=== PATIENT | female | born 1965 | race Caucasian/White ===

== ENCOUNTER 2016-08-15 12:24 | Observation (INO) | payer OTHER ==
[~2016-08-15] VITALS: Ht 165.1 cm; Wt 98.3 kg
[~2016-08-15 12:24] MED LIST: AMT25T PO; OXYC5SOL11 PO; TOPI200T7 PO; TOPI50TA88 PO
[2016-08-15 12:35] VITALS: BP 166/94; PULSE 70; RESP 18; O2SAT 99
--- NOTE | 2016-08-15 12:47 | ED.REPORT ---
HPI-General Illness Date of Service Aug 15, 2016 ED Provider: Viky Islas MD Pt is a 50 y.o. female with a hx of fibromyalgia, depression, and migraines who presents to the ED via EMS accompanied by her with an altered level of consciousness onset 1130. The states that the pt got up this morning around 0630 then fell back asleep. He heard her moaning around 1130 and went to check on her. When she wasn't completely responsive he decided to call EMS. Per pt has had 2 episodes of "extreme fatigue" over the past several weeks where she is only able to move from her bed to a chair before she falls back to sleep. denies any recent stressors in the pt's life. Upon examination pt expresses left lower extremity pain by loudly moaning when it is palpated. Pt is a poor historian. Nursing Notes Stated Complaint: UNRESPONSIVE Chief Complaint: General Complaint Nursing Notes Reviewed: Yes Allergies: Coded Allergies: Shellfish (Verified Allergy, Intermediate, breathing difficulties,n/v diarrhea, 08/30/15) Soy (Verified Allergy, Intermediate, breathing diffculties,n/v and diarrhea, 08/30/15) gluten (Verified Allergy, Intermediate, resp difficulties,n/v,diarrhea, ) Sulfa (Sulfonamide Antibiotics) (Verified Allergy, Unknown, UNKNOWN, ) codeine (Verified Allergy, Unknown, UNKNOWN, 08/30/15) Uncoded Allergies: DAIRY (Allergy, Intermediate, breathing difficulties n/v diarrhea, 06/28/14) EGGS (Allergy, Intermediate, breathing difficulties,n/v and diarrhea, ) FISH (Allergy, Intermediate, breathing difficulties,n/v diarrhea, 06/28/14) PEANUTS (Allergy, Intermediate, breathing difficulties,n/v,diarrhea, ) TREE NUTS (Allergy, Intermediate, breathing difficulties,n/v diarrhea, 06/28) ANESTHESIA/PAIN MEDS.. (Allergy, Unknown, UNKNOWN, 06/27/14) Scheduled Escitalopram Oxalate (Escitalopram Oxalate) 20 Mg Tablet 20 MG PO HS Magnesium Glycinate (Mag Glycinate) 100 Mg Tablet 100 MG PO BID Magnesium Glycinate (Mag Glycinate) 100 Mg Tablet 200 MG PO HS General Time Seen by MD: 12:45 Chief Complaint Other (Altered LOC) Hx Obtained From: Patient Unable to Obtain Hx: Patient condition Arrived By: Ambulance Sudden in Onset?: Yes Onset Occurred: 1 - 4 hours ago Symptom Duration: Since onset Location: : Foot left: Leg left Quality: Painful Severity: Current: Moderate Past Medical History Past Medical History Notes: Last brain imaging was an MRI completed in 2008 Past Medical History Pneumonia GERD Kidney stones Fibromyalgia eosinophilic esophagitis DENIS Chronic back pain hx of Hep A and B Reports: Asthma Reports: Depression, Migraines Past Surgical History hysterectomy 04/2015 oophorectomy 06/2015 Knee repair Reports: Cholecystectomy Smoking History Never Smoker Social History Drug Use: THC Ambulatory Status Independent Review of Systems Unable to Obtain ROS Patient condition Full Review of Systems Musculoskeletal: Reports: Extremity pain (Left lower extremity pain) Neurologic: Reports: Change LOC Complete sys rev & neg: except as marked. Physical Exam Vital Signs Vital Signs Date Time Temp Pulse Resp B/P Pulse Ox O2 Delivery O2 Flow Rate FiO2 08/15/16 12:35 37 70 18 166/94 99 Room Air Initial VS: Reviewed Neck: Supple Extremities: Vascular intact, Neuro intact General/Constitutional: Well appearing, Well developed, Well hydrated, Well nourished, Not toxic appearing Appearance / Presentation: Positive: Pale Comfortable appearing Head / Eyes: Atraumatic, Normocephalic Pupils: Positive: Dilated L, Dilated R Widely dilated pupils that are very reactive Respiratory / Chest: Atraumatic, Breath sounds NL, Breath sounds = bilat, No respiratory distress, No wheezing Pt is protecting their airway Cardiovascular: Heart rate NL, Regular rhythm, Heart sounds NL, No murmurs, Peripheral circulation NL Abdomen: Atraumatic, Soft, Non-tender, BS normoactive, No distention Lower Extremity / Pelvis / MS: Atraumatic, Neurologic intact, Vascular intact Left calf spasm present Ankle / Foot: Atraumatic, Neurologic intact, Vascular intact Internal rotation of left foot with spasm. Skin: Atraumatic, Color NL, No rash, Warm, Dry, Intact, No swelling Mental Status: Positive: Responds to painful stim Responds with monosyllabic noises Can wiggle toes minimally when asked. Not as responsive when asked to squeeze her hands. Interpretation & Diagnostics Lab Results Interpretation Result Diagram: 08/15/16 1318 08/15/16 1318 Test 08/15/16 13:00 4/1/17 13:18 Urine Color Yellow (YELLOW) Urine Appearance Clear (CLEAR,HAZY) Urine pH 7.0 (5.0-8.0) Urine Specific [place] 1.010 (1.003-1.035) Urine Protein Negativemg/dL (NEG,TRACE) Urine Glucose (UA) Negativemg/dL (NEGATIVE) Urine Ketones Negativemg/dL (NEGATIVE) Urine Occult Blood Negative (NEGATIVE) Urine Nitrite Negative (NEGATIVE) Urine Bilirubin Negative (NEGATIVE) Urine Urobilinogen Normalmg/dL (NORMAL) Urine Leukocyte Esterase Negative (NEGATIVE) Urine RBC 0-2/hpf (0-2) Urine WBC 0-5/hpf (0-5) Urine Epithelial Cells Moderate/hpf (NONE-MOD) Urine Crystals Amorphous urates (NONE Urine Bacteria None/hpf (NONE-FEW) Urine Hyaline Casts None/lpf (NONE) Urine Granular Casts None seen (NONE SEEN) Urine Waxy Casts None seen (NONE SEEN) Urine Red Blood Cell Casts None seen (NONE SEEN) Urine White Blood Cell Casts None seen (NONE SEEN) Urine Mucus None seen (None Seen) Urine Trichomonas None seen (NONE SEEN) Urine Yeast None (NONE SEEN) Urinalysis Comment None Urine Culture Reflexed Not indicated Urine Opiates Screen Negative Urine Methadone Screen Negative Urine Barbiturates Screen Negative Urine Amphetamines Screen Negative Urine Benzodiazepines Screen Negative Urine Cocaine Metabolite Screen Negative Urine Cannabinoids Screen Negative White Blood Count 7.3th/mm3 (3.8-10.1) Red Blood Count 4.88mil/mm3 (3.90-5.20) Hemoglobin 14.9g/dL (12.0-15.6) Hematocrit 45.4% (35.0-46.0) Mean Corpuscular Volume 93.0fL (81-100) Mean Corpuscular Hemoglobin 30.5pg (27.0-35.0) Mean Corpuscular Hemoglobin Concent 32.8% (32.0-37.0) Red Cell Distribution Width 12.8% (12.3-15.4) Platelet Count 299bil/L (150-400) Neutrophils (%) (Auto) 55.6% (40-74) Lymphocytes (%) (Auto) 26.6% (14-46) Monocytes (%) (Auto) 6.5% (4-12) Eosinophils (%) (Auto) 10.6% (0-5) Basophils (%) (Auto) 0.6% (0-3) Sodium Level 138mEq/L (134-144) Potassium Level 4.4mEq/L (3.5-5.2) Chloride Level 100mEq/L (97-108) Carbon Dioxide Level 23mmol/L (18-29) Blood Urea Nitrogen 13mg/dL (6-24) Creatinine 0.73mg/dL (0.57-1.00) Estimat Glomerular Filtration Rate 120mL/min (>59) Glucose Level 102mg/dL (60-99) Lactic Acid Level 1.6mmol/L (0.4-2.0) Calcium Level 9.5mg/dL (8.5-10.1) Magnesium Level 2.1mg/dL (1.6-2.6) Total Bilirubin 0.3mg/dL (0.0-1.2) Aspartate Amino Transf (AST/SGOT) 20U/L (0-50) Alanine Aminotransferase (ALT/SGPT) 18U/L (0-32) Alkaline Phosphatase 90U/L (25-150) Troponin T < 0.010ug/L (0.0-0.011) Total Protein 7.5g/dL (6.4-8.4) Albumin 4.3g/dL (3.4-5.0) Procalcitonin 0.03ng/mL (0.00-0.08) CT Head Interpretation IMPRESSION: No acute intracranial abnormalities. Dictated by: Jeramy Hicks M.D. on 08/15/2016 at 13:37 Approved by: Jeramy Hicks M.D. on 08/15/2016 at 13:38 Re-Eval/Medical Decision Med Decision/Clinical Course 50-year-old woman with increasing stressors recently. Presents with a constellation of symptoms that are puzzling at best. She simply will not participate. She will open her eyes she will move she will turn over. She is moving all extremities she can open her eyes she is grunting yes or no answers to questions. There is no evidence that she is seizing has seized or is post ictal at this point there is no medical evidence of acute infection CT scan of the brain shows no lesions or other concerns. Most likely diagnosis at this point is an acute conversion disorder. Like to admit her to the hospitalist service with acute psychiatric consultation. She is not a good fit for the care center as she is completely non-ambulatory at this point she does grunt her consent when discussing the possibility of conversion disorder and being cared for by a psychiatrist. Source of Hx: Old records Time of Eval: 14:47 Re-Evaluation/Progress Note: Pt rechecked. Discussed imaging and lab results. Discussed possibility of conversion disorder and need for admit for further medical and psychiatric work-up. Pt and understand and agree with plan. Pt moans agreement. Consultation #1: Referral / Consult Name: Maxim Wade Consulted With: Hospitalist Call Returned at: 15:11 Change Coordinator: Will see patient Note: Discussed pt condition and need for psychiatric consult. He states he will examine the pt. He has reservations without a neurology consult. Consultation #2: Consulted With: Psychiatry Call Returned at: 15:40 Change Coordinator: Will see patient Note: Dr Santa is speaking with Dr Preciado about options for admission. Current plan is still hospital floor admission (needs to be ambulatory for [facility]) with in patient consultation. Most likelydiagnosis remains acute conversion disorder. Counseled Regarding: Diagnosis, Lab results Discharge & Departure Primary Impression: Conversion disorder, acute episode, with weakness or paralysis Additional Impression: Altered mental status Disposition: ADMITTED TO HOSPITAL Discharge Condition All VS Reviewed: Yes Condition: No Change Referrals: Mai Friedman MD (PCP) Adam Attestation Portions of this note were transcribed by Estelle Desai. I, Dr. Islas personally performed the history, physical exam and medical decision-making; I reviewed and confirmed the accuracy of the information in the transcribed note. Signed by: Adam Avitia, 08/15/16 and 1518 copies to: Mai Friedman MD, Shawna L MD Aug 15, 2016 12:47 ESTELLE DESAI Aug 15, 2016 12:55
[2016-08-15] MEDS ORDERED: 0.9% Sodium Chloride 1,000 ML IV ONE (13:09)
[2016-08-15 13:31] LABS: BASOPHILS % (AUTO) 0.6 % (0-3); EOSINOPHILS % (AUTO) 10.6 % (0-5); MONOCYTES % (AUTO) 6.5 % (4-12); Mean Corpuscular Hemoglobin 30.5 pg (27.0-35.0); NEUTROPHILS % (AUTO) 55.6 % (40-74); Platelet Count 299 bil/L (150-400)
[2016-08-15 13:35] LABS: APPEARANCE,URINE CLEAR (CLEAR,HAZY); COLOR,URINE YELLOW (YELLOW); OCCULT BLOOD,URINE NEGATIVE (NEGATIVE); UROBILINOGEN,URINE NORMAL (NORMAL)
--- NOTE | 2016-08-15 13:39 | DRSVH ---
PROCEDURE: CT BRAIN WITHOUT CONTRAST ([id number]) INDICATIONS: 50-year-old female with altered mental status. TECHNIQUE: Noncontrast 4.5 mm thick angled axial sections acquired from the foramen magnum to the vertex, with c oronal reformats. COMPARISON: None. FINDINGS: Image quality: Excellent. CSF spaces: Basal cisterns are patent. No extra-axial fluid collections. Ventricles are normal in size and shape. Brain: No midline shift. No intracranial masses or hemorrhage. Rivera-white matter interface is norm al. Skull and face: Calvarium and visualized facial bones are intact, without suspicious lesions. Sinuses: Visualized sinuses and mastoids are clear. IMPRESSION: No acute intracranial abnormalities. Dictated by: Jeramy Hicks M.D. on 08/15/2016 at 13:37 Approved by: Jeramy Hicks M.D. on 08/15/2016 at 13:38
[2016-08-15 13:56] LABS: Magnesium 2.1 mg/dL (1.6-2.6)
[2016-08-15 14:07] LABS: TROPONIN T < 0.010 ug/L (0.0-0.011)
[2016-08-15 15:41] VITALS: BP 158/92; PULSE 72; RESP 18; O2SAT 99
[2016-08-15] MEDS ORDERED: Ondansetron 2 mg/mL 2 mL Inj IVPUSH PRN (16:15)
[2016-08-15] MEDS ORDERED: Alum-Mag Hydrox-Simeth 30 mL Suspension PO PRN (16:15)
[2016-08-15] MEDS ORDERED: Polyethylene Glycol (PEG) 17 Gm Powder PO PRN (16:15)
[2016-08-15 16:17] VITALS: BP 145/93; PULSE 68; RESP 18; O2SAT 98
[2016-08-15] MEDS ORDERED: ESCI20TA38 PO (16:25)
[2016-08-15] MEDS ORDERED: MAGN100T PO ×2 (16:25)
[2016-08-15 16:26] VITALS: PULSE 75
[2016-08-15 17:08] VITALS: PULSE 75
--- NOTE | 2016-08-15 17:13 | PCM.HPMED ---
Subjective Date of Service Aug 15, 2016 Primary Provider: Admitting Physician: Maxim Wade Primary Care Physician: Mai Friedman MD Attending Physician: Maxim Wade Chief Complaint: unresponsive History of Present Illness: 50 year-old female with a history of fibromyalgia, depression, and migraines presents to the ED via EMS accompanied by her with report of unresponsiveness and altered level of consciousness. The patient is nonverbal and thus the entire history is obtained from her . The repots that over the past 2 weeks patient has had two episodes (each lasting about 3 days) where she has been very tired and complaining of "low energy". She otherwise has not been having any change in appetite and in fact has been eating and drinking "fine" according to her . No vomiting, fever, chills , dysuria, diarrhea, numbness, or tingling were noted or reported by her. Last week she did have an episode of migraine headache associated with some blurry vision which prompted a visit to the airplane electrician which reportedly did not find any abnormal finding and her symptoms resolved within 24 hours. Today patient reportedly walk up around 0630 and then fell back asleep. He heard her moaning around 1130 and when she wasn't completely responsive he decided to call EMS. denies any recent stressors in the pt's life but does not that "she has been through a lot" in recent years including her fibromyalgia, migraines and more recent hysterectomy and ? salpingo-oophorectomy in April 2016 due to endometriosis. Interestingly even though patient is non-verbal and minimally responsive she does moan "yes" and "no" in the middle of my discussion with her . For example, when I asked her if she was having any nausea or vomiting the initially said "no" but the patient started moaning and her appologized to the patient and said "sorry dear you're right" and then turned to me and said "she is trying to correct me, she did have some nausea" earlier. I also asked the patient if she could talk and she moaned "no". I asked her if she knew where she was and she moaned "uhumm" but when asked if she could tell me where she is she didn't say anything! When asked if she has any pain she moans "no". Allergies Coded Allergies: Shellfish (Verified Allergy, Intermediate, breathing difficulties,n/v diarrhea, 08/30/15) Soy (Verified Allergy, Intermediate, breathing diffculties,n/v and diarrhea, 08/30/15) gluten (Verified Allergy, Intermediate, resp difficulties,n/v,diarrhea, ) Sulfa (Sulfonamide Antibiotics) (Verified Allergy, Unknown, UNKNOWN, ) codeine (Verified Allergy, Unknown, UNKNOWN, 08/30/15) Uncoded Allergies: DAIRY (Allergy, Intermediate, breathing difficulties n/v diarrhea, 06/28/14) EGGS (Allergy, Intermediate, breathing difficulties,n/v and diarrhea, ) FISH (Allergy, Intermediate, breathing difficulties,n/v diarrhea, 06/28/14) PEANUTS (Allergy, Intermediate, breathing difficulties,n/v,diarrhea, ) TREE NUTS (Allergy, Intermediate, breathing difficulties,n/v diarrhea, 06/28) ANESTHESIA/PAIN MEDS.. (Allergy, Unknown, UNKNOWN, 06/27/14) Home Medications Escitalopram Oxalate 20 Mg Tablet 20 Mg PO HS 30 Days Ref 0 Electrolytic, Caloric, And Bettye Magnesium Glycinate 100 Mg Tablet (Mag Glycinate) 100 Mg PO BID Magnesium Glycinate 100 Mg Tablet (Mag Glycinate) 200 Mg PO HS Exam Vital Signs & I/O Vital Sign- Last 8 Hours Date Time Temp Pulse Resp B/P Pulse Ox O2 Delivery O2 Flow Rate FiO2 08/15/16 16:26 75 08/15/16 16:17 37.2 68 18 145/93 98 Room Air 08/15/16 15:41 37 72 18 158/92 99 Room Air 08/15/16 12:35 37 70 18 166/94 99 Room Air Lab & Micro Results Laboratory Tests Test 08/15/16 13:00 08/15/16 13:18 Urine Color Yellow (YELLOW) Urine Appearance Clear (CLEAR,HAZY) Urine pH 7.0 (5.0-8.0) Urine Specific [place] 1.010 (1.003-1.035) Urine Protein Negativemg/dL (NEG,TRACE) Urine Glucose (UA) Negativemg/dL (NEGATIVE) Urine Ketones Negativemg/dL (NEGATIVE) Urine Occult Blood Negative (NEGATIVE) Urine Nitrite Negative (NEGATIVE) Urine Bilirubin Negative (NEGATIVE) Urine Urobilinogen Normalmg/dL (NORMAL) Urine Leukocyte Esterase Negative (NEGATIVE) Urine RBC 0-2/hpf (0-2) Urine WBC 0-5/hpf (0-5) Urine Epithelial Cells Moderate/hpf (NONE-MOD) Urine Crystals Amorphous urates (NONE Urine Bacteria None/hpf (NONE-FEW) Urine Hyaline Casts None/lpf (NONE) Urine Granular Casts None seen (NONE SEEN) Urine Waxy Casts None seen (NONE SEEN) Urine Red Blood Cell Casts None seen (NONE SEEN) Urine White Blood Cell Casts None seen (NONE SEEN) Urine Mucus None seen (None Seen) Urine Trichomonas None seen (NONE SEEN) Urine Yeast None (NONE SEEN) Urinalysis Comment None Urine Culture Reflexed Not indicated Urine Opiates Screen Negative Urine Methadone Screen Negative Urine Barbiturates Screen Negative Urine Amphetamines Screen Negative Urine Benzodiazepines Screen Negative Urine Cocaine Metabolite Screen Negative Urine Cannabinoids Screen Negative White Blood Count 7.3th/mm3 (3.8-10.1) Red Blood Count 4.88mil/mm3 (3.90-5.20) Hemoglobin 14.9g/dL (12.0-15.6) Hematocrit 45.4% (35.0-46.0) Mean Corpuscular Volume 93.0fL (81-100) Mean Corpuscular Hemoglobin 30.5pg (27.0-35.0) Mean Corpuscular Hemoglobin Concent 32.8% (32.0-37.0) Red Cell Distribution Width 12.8% (12.3-15.4) Platelet Count 299bil/L (150-400) Neutrophils (%) (Auto) 55.6% (40-74) Lymphocytes (%) (Auto) 26.6% (14-46) Monocytes (%) (Auto) 6.5% (4-12) Eosinophils (%) (Auto) 10.6% (0-5) Basophils (%) (Auto) 0.6% (0-3) Sodium Level 138mEq/L (134-144) Potassium Level 4.4mEq/L (3.5-5.2) Chloride Level 100mEq/L (97-108) Carbon Dioxide Level 23mmol/L (18-29) Blood Urea Nitrogen 13mg/dL (6-24) Creatinine 0.73mg/dL (0.57-1.00) Estimat Glomerular Filtration Rate 120mL/min (>59) Glucose Level 102mg/dL (60-99) Lactic Acid Level 1.6mmol/L (0.4-2.0) Calcium Level 9.5mg/dL (8.5-10.1) Magnesium Level 2.1mg/dL (1.6-2.6) Total Bilirubin 0.3mg/dL (0.0-1.2) Aspartate Amino Transf (AST/SGOT) 20U/L (0-50) Alanine Aminotransferase (ALT/SGPT) 18U/L (0-32) Alkaline Phosphatase 90U/L (25-150) Troponin T < 0.010ug/L (0.0-0.011) Total Protein 7.5g/dL (6.4-8.4) Albumin 4.3g/dL (3.4-5.0) Procalcitonin 0.03ng/mL (0.00-0.08) Result Diagram: 08/15/16 1318 08/15/16 1318 Review of Systems: Constitutional: Negative, except as otherwise mentioned in the history above. Ophthalmologic: Negative, except as otherwise mentioned in the history above. Cardiovascular: Negative, except as otherwise mentioned in the history above. Respiratory: Negative, except as otherwise mentioned in the history above. Gastrointestinal: Negative, except as otherwise mentioned in the history above. Genitourinary: Negative, except as otherwise mentioned in the history above. Musculoskeletal: Negative, except as otherwise mentioned in the history above. Neurological: Negative, except as otherwise mentioned in the history above. Psychiatric: Negative, except as otherwise mentioned in the history above. Hematologic/Lymphatic: Negative, except as otherwise mentioned in the history above. Allergic/Immunologic: Negative, except as otherwise mentioned in the history above. PMH 1. Fibromyalgia 2. migraines 3. DENIS (on CPAP) 4. occasional insomnia 5. Eosinophilic esophagitis Surgical History s/p hysterectomy and ? salpingo-oophorectomy in April 2016 Family History mother with breast cancer. father with ? psychiatric disorder Social History Hx Alcohol Use: Yes (rare) Hx Substance Use: No Hx Tobacco Use: No Smoking Status: Never Smoker Exam Vital Signs Vital Sign - Last Date Time Temp Pulse Resp B/P Pulse Ox O2 Delivery O2 Flow Rate FiO2 08/15/16 16:26 75 08/15/16 16:17 37.2 18 145/93 98 Room Air General: No Acute Distress Head: Normal Eyes: PERRLA, Scleral Anicteric Nose: Mucous Membr Moist/[place] Mouth: Mucous Membr Moist/[place] Neck: No Thyromegaly Chest & Lungs: Chest Wall Normal, Clear to auscultation & percussion Cardiovascular: Regular Rate/Rhythm Pulses: NL carotid, radial, femoral, DP, PT Abdomen: Non-tender, Non-distended, Normoactive bowel tones, Soft Extremities: No cyanosis/clubbing/edma bilat Neurological: Other (non-verbal except moaning to answer "yes/no" as noted in HPI. otherwise does not follow any command excpet when asked to open her eyes she seemed to attempt to open her eye but didn't.) Lymphatic: Other Lymph Nodes (no lymphadenopathy) Lab and Diagnostics Result Diagram: 08/15/16 1318 08/15/16 1318 X-Rays, CTs and MRIs Date of Service: 08/15/16 1309 PROCEDURE: CT BRAIN WITHOUT CONTRAST ([id number]) IMPRESSION: No acute intracranial abnormalities. Dictated by: Jeramy Hicks M.D. on 08/15/2016 at 13:37 Approved by: Jeramy Hicks M.D. on 08/15/2016 at 13:38 12-lead ECG not done Assessment & Plan 50 year-old female with a history of fibromyalgia, depression, and migraines presents to the ED via EMS accompanied by her with report of unresponsiveness and altered level of consciousness. # Acute unresponsiveness and change in mental status, preset on admission. 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 - check urine tox - f/u on tele - psychiatry consulted in ED. will f/u w/ further recs - check TSH to rule out hypothyroid as contributing factor - c/w supportive care # History fibromyalgia. presumed stable - c/w supportive care # Eosinophilia. unclear acuity or significance. present on admission. - ? if related to history of eosinophilic esophagitis. - f/u # DENIS, chronic. - pt to use her home CPAP setting # Reported history of insomnia. - pt's says she is intolerant of sleeping pills and would have "nightmares" with them and has not been taking any sleeping aids in recent months or year. She is being admitted as observation status with expected length of hospital stay less than 2 midnights. GI Prophylaxis: Proton Pump Inhibitor VTE Prophylaxis: Sub-Q Heparin (Unfractionated) Resuscitation Status: CPR: Attempt Resuscitation (discussed and verified with her ) Time spent 60 min Maxim Wade Aug 15, 2016 17:13
[2016-08-15] MEDS: Heparin 5,000 Unit/mL Inj SUBQ SCH (18:29)
[2016-08-15] MEDS ORDERED: Dextrose 5% 0.45% NaCl 1,000 ML IV ONE (18:55)
[2016-08-15] MEDS ORDERED: Acetaminophen IV 1,000 MG in IV Premix 1 EACH IV ONE (20:10)
[2016-08-15 20:40] VITALS: BP 153/93; PULSE 81; RESP 18; O2SAT 94
[2016-08-16] MEDS: Heparin 5,000 Unit/mL Inj SUBQ SCH ×2 (01:18→08:30)
[2016-08-16 01:25] VITALS: BP 167/106; PULSE 80; RESP 20; O2SAT 96
[2016-08-16 02:29] VITALS: BP 142/88; PULSE 72
[2016-08-16] MEDS ORDERED: Acetaminophen IV 1,000 MG in IV Premix 1 EACH IV ONE (02:40)
[2016-08-16 05:23] VITALS: PULSE 80
[2016-08-16 06:12] VITALS: BP 139/90; PULSE 67; RESP 18; O2SAT 96
[2016-08-16 08:37] VITALS: PULSE 97
--- NOTE | 2016-08-16 10:14 | PCM.DIMED ---
Discharge Instructions Date of Service Aug 16, 2016 Dates of Hospitalization Aug 15, 2016 at 15:19 Discharge Diagnosis Discharge Diagnosis # Acute unresponsiveness and change in mental status, preset on admission. 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 - will need close followup with primary care provider and for followup on the pending thyroid panel study. # History fibromyalgia. presumed stable # Mild eosinophilia. unclear acuity or significance. present on admission. - Followup with primary care provider to ensure resolution. # Obstructive sleep apnea, chronic. Diet No restrictions Activity No restrictions Call your provider Fever or Chills, Shortness of breath, Bleeding, Chest pain, Weakness (unilateral ) Patient Instructions Seek immediate medical attention if any new or worsening signs or symptoms occur. Follow-up plan 1. Followup with primary care provider in 2-5 days Follow-up Provider: Mai Friedman MD, Masoud Aug 16, 2016 10:14
[2016-08-16 14:01] VITALS: BP 160/92; PULSE 81; RESP 18; O2SAT 96
--- NOTE | 2016-08-16 14:40 | PCM.DC.MED ---
Discharge Summary Date of Service Aug 16, 2016 Dates of Hospitalization Date of Hospital Admission Aug 15, 2016 at 15:19 Date of Discharge: Aug 16, 2016 Providers: Admitting Physician: Maxim Wade Primary Care Physician: Mai Friedman MD Attending Physician: Maxim Wade Diagnosis at Time of Discharge Diagnosis at Time of Discharge # Acute unresponsiveness and change in mental status, preset on admission. 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 - will need close followup with primary care provider and for followup on the pending thyroid panel study. # History fibromyalgia. presumed stable # Mild eosinophilia. unclear acuity or significance. present on admission. - Followup with primary care provider to ensure resolution. # Obstructive sleep apnea, chronic. Procedures XRay, CTs & MRIs Date of Service: 08/15/16 1309 PROCEDURE: CT BRAIN WITHOUT CONTRAST ([id number]) IMPRESSION: No acute intracranial abnormalities. Dictated by: Jeramy Hicks M.D. on 08/15/2016 at 13:37 Approved by: Jeramy Hicks M.D. on 08/15/2016 at 13:38 Brief History As noted in my H&P from 08/15/16: 50 year-old female with a history of fibromyalgia, depression, and migraines presents to the ED via EMS accompanied by her with report of unresponsiveness and altered level of consciousness. The patient is nonverbal and thus the entire history is obtained from her . The repots that over the past 2 weeks patient has had two episodes (each lasting about 3 days) where she has been very tired and complaining of "low energy". She otherwise has not been having any change in appetite and in fact has been eating and drinking "fine" according to her . No vomiting, fever, chills , dysuria, diarrhea, numbness, or tingling were noted or reported by her. Last week she did have an episode of migraine headache associated with some blurry vision which prompted a visit to the audit director which reportedly did not find any abnormal finding and her symptoms resolved within 24 hours. Today patient reportedly walk up around 0630 and then fell back asleep. He heard her moaning around 1130 and when she wasn't completely responsive he decided to call EMS. denies any recent stressors in the pt's life but does not that "she has been through a lot" in recent years including her fibromyalgia, migraines and more recent hysterectomy and ? salpingo-oophorectomy in April 2016 due to endometriosis. Interestingly even though patient is non-verbal and minimally responsive she does moan "yes" and "no" in the middle of my discussion with her . For example, when I asked her if she was having any nausea or vomiting the initially said "no" but the patient started moaning and her appologized to the patient and said "sorry dear you're right" and then turned to me and said "she is trying to correct me, she did have some nausea" earlier. I also asked the patient if she could talk and she moaned "no". I asked her if she knew where she was and she moaned "uhumm" but when asked if she could tell me where she is she didn't say anything! When asked if she has any pain she moans "no". Hospital Course # Acute unresponsiveness and change in mental status, preset on admission. 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 - urine tox negative - Thyroid study results still pending - by morning of 08/16/16 patient's presenting symptoms seemed to have completely resolved. She was noted to be sitting at the edge of the bed (awake, alert and oriented). When asked if she remembered me from yesterday she answered "yes" and told me that even though she could hear me yesterday she was unable to move any of her extremities or open her eyes or mouth as was being instructed at the time. But this morning she had tolerated her breakfast and had been ambulating the lawrence without difficulty. Patient and her were eager for patient to be discharged and did not wish to wait for the final thyroid study result nor to be seen by psychiatrist during this hospitalization. Her discharge orders and instructions were done but I was notified by her nurse that when she went to give her the discharge papers patient was again laying in bed flat and not following any commands. Her at that time was requesting for patient to be transferred to [facility]. I revisited patient and her noted that he felt that we were not taking his 's medical condition seriously and he felt that I had already made up my mind about her diagnosis being psychological as opposed to medical. I tried to reassure him that I was trying to rule out medical causes of her symptoms but that psychological etiology such as conversion disorder was still high on the list of differential. Nevertheless, patient's insisted on patient being transferred. I placed a call to [facility]/Dejuan Staley and Dr. Pike has graciously agreed to accept the patient with possible consideration of further neurology consult over there (not available at our hospital at this time). Of note, when I went back in the room to update patient's of the transfer process patient started making a humming sound while laying flat in bed with her eyes and mouth closed. Patient's was noted to say: "what was that dear" to which the patient responded with the same humming sound and her responded by: "do you need to urinate?" and the patient responded by moaning "uhumm". Per nursing patient's subsequently asked the nurse for insertion of [place] catheter. However, nursing was instructed to scan patient's bladder and only consider a straight cath if indicated based on bladder scan. # History fibromyalgia. presumed stable - c/w supportive care # Eosinophilia. unclear acuity or significance. present on admission. - ? if related to history of eosinophilic esophagitis. - followup # DENIS, chronic. - pt to use her home CPAP setting # Reported history of insomnia. - pt's says she is intolerant of sleeping pills and would have "nightmares" with them and has not been taking any sleeping aids in recent months or year. by day of transfer lungs are CTA bilat. CV: RRR. Exam Vital Signs (Last) Date Time Temp Pulse Resp B/P Pulse Ox O2 Delivery O2 Flow Rate FiO2 08/16/16 14:01 37.7 81 18 160/92 96 Room Air Test 08/15/16 13:00 08/15/16 13:18 08/15/16 18:13 Urine Color Yellow (YELLOW) Urine Appearance Clear (CLEAR,HAZY) Urine pH 7.0 (5.0-8.0) Urine Specific [place] 1.010 (1.003-1.035) Urine Protein Negativemg/dL (NEG,TRACE) Urine Glucose (UA) Negativemg/dL (NEGATIVE) Urine Ketones Negativemg/dL (NEGATIVE) Urine Occult Blood Negative (NEGATIVE) Urine Nitrite Negative (NEGATIVE) Urine Bilirubin Negative (NEGATIVE) Urine Urobilinogen Normalmg/dL (NORMAL) Urine Leukocyte Esterase Negative (NEGATIVE) Urine RBC 0-2/hpf (0-2) Urine WBC 0-5/hpf (0-5) Urine Epithelial Cells Moderate/hpf (NONE-MOD) Urine Crystals Amorphous urates (NONE Urine Bacteria None/hpf (NONE-FEW) Urine Hyaline Casts None/lpf (NONE) Urine Granular Casts None seen (NONE SEEN) Urine Waxy Casts None seen (NONE SEEN) Urine Red Blood Cell Casts None seen (NONE SEEN) Urine White Blood Cell Casts None seen (NONE SEEN) Urine Mucus None seen (None Seen) Urine Trichomonas None seen (NONE SEEN) Urine Yeast None (NONE SEEN) Urinalysis Comment None Urine Culture Reflexed Not indicated Urine Opiates Screen Negative Urine Methadone Screen Negative Urine Barbiturates Screen Negative Urine Amphetamines Screen Negative Urine Benzodiazepines Screen Negative Urine Cocaine Metabolite Screen Negative Urine Cannabinoids Screen Negative White Blood Count 7.3th/mm3 (3.8-10.1) Red Blood Count 4.88mil/mm3 (3.90-5.20) Hemoglobin 14.9g/dL (12.0-15.6) Hematocrit 45.4% (35.0-46.0) Mean Corpuscular Volume 93.0fL (81-100) Mean Corpuscular Hemoglobin 30.5pg (27.0-35.0) Mean Corpuscular Hemoglobin Concent 32.8% (32.0-37.0) Red Cell Distribution Width 12.8% (12.3-15.4) Platelet Count 299bil/L (150-400) Neutrophils (%) (Auto) 55.6% (40-74) Lymphocytes (%) (Auto) 26.6% (14-46) Monocytes (%) (Auto) 6.5% (4-12) Eosinophils (%) (Auto) 10.6% (0-5) Basophils (%) (Auto) 0.6% (0-3) Sodium Level 138mEq/L (134-144) Potassium Level 4.4mEq/L (3.5-5.2) Chloride Level 100mEq/L (97-108) Carbon Dioxide Level 23mmol/L (18-29) Blood Urea Nitrogen 13mg/dL (6-24) Creatinine 0.73mg/dL (0.57-1.00) Estimat Glomerular Filtration Rate 120mL/min (>59) Glucose Level 102mg/dL (60-99) Lactic Acid Level 1.6mmol/L (0.4-2.0) Calcium Level 9.5mg/dL (8.5-10.1) Magnesium Level 2.1mg/dL (1.6-2.6) Total Bilirubin 0.3mg/dL (0.0-1.2) Aspartate Amino Transf (AST/SGOT) 20U/L (0-50) Alanine Aminotransferase (ALT/SGPT) 18U/L (0-32) Alkaline Phosphatase 90U/L (25-150) Troponin T < 0.010ug/L (0.0-0.011) Total Protein 7.5g/dL (6.4-8.4) Albumin 4.3g/dL (3.4-5.0) Procalcitonin 0.03ng/mL (0.00-0.08) Discharge Medications Discharge Medications Escitalopram Oxalate (Escitalopram Oxalate) 20 Mg Tablet 20 MG PO HS (Reported) Magnesium Glycinate (Mag Glycinate) 100 Mg Tablet 100 MG PO BID (Reported) Magnesium Glycinate (Mag Glycinate) 100 Mg Tablet 200 MG PO HS (Reported) Followup Plan Disposition: transfer Follow-up plan 1. Followup with primary care provider in 2-5 days Discharge Diet: No restrictions Discharge Activity: No restrictions Patient Instructions Seek immediate medical attention if any new or worsening signs or symptoms occur. Follow-up Provider: Mai Friedman MD Time spent 45 min copies to: Mai Friedman MD, Masoud Aug 16, 2016 14:40
[2016-08-18 02:12] LABS: Free Thyroxine Index 1.6 (1.2-4.9)
== END 2016-08-16 14:23 | disposition short-term general hospital (02) ==
LOC: EDUNIT# 12:24 → EDBD 12:24 → SED 12:24 → MPC 15:19
PROVIDERS: ADMIT Internal Medicine; ATTEND Internal Medicine
DX: R41.82 Altered mental status, unspecified (principal); M79.7 Fibromyalgia; D72.1 Eosinophilia; G47.33 Obstructive sleep apnea (adult) (pediatric); F32.9 Major depressive disorder, single episode, unspecified; K21.9 Gastro-esophageal reflux disease without esophagitis; M54.5 Low back pain; J45.909 Unspecified asthma, uncomplicated; F12.90 Cannabis use, unspecified, uncomplicated; K20.0 Eosinophilic esophagitis; Z88.8 Allergy status to other drugs, medicaments and biological substances; Z91.011 Allergy to milk products; Z91.010 Allergy to peanuts; Z91.013 Allergy to seafood; Z87.442 Personal history of urinary calculi; Z90.710 Acquired absence of both cervix and uterus
CPT/HCPCS: 36415; 70450; 80053; 81000; 83605; 83735; 84145; 84436; 84443; 84479; 84484; 85025; 96361; 96374; 96375; 96376; 99285; G0378; G0480; J0131; J1644; J2060; J2405; J7030; J7042